=== PATIENT | female | born 1990 | race Caucasian/White ===

== ENCOUNTER 2019-09-22 12:07 | Emergency (ER) | payer OTHER ==
[~2019-09-22] VITALS: Ht 160 cm; Wt 59.0 kg
[~2019-09-22 12:07] MED LIST: DIVA500T1 PO; LURA40TA PO
[2019-09-22 12:16] VITALS: BP 108/71
[2019-09-22] MEDS ORDERED: ONDANSETRON 4 MG ODT PO ONE (12:45)
== END 2019-09-22 13:47 | disposition left against medical advice (07) ==
LOC: MED 12:07
DX: T43.644A Poisoning by ecstasy, undetermined, initial encounter (principal); F20.9 Schizophrenia, unspecified; F17.200 Nicotine dependence, unspecified, uncomplicated; Z79.899 Other long term (current) drug therapy; Y92.89 Other specified places as the place of occurrence of the external cause
CPT/HCPCS: 81002; 81025; 99283; Q0162

== ENCOUNTER 2020-03-02 15:55 | Emergency (ER) | payer OTHER ==
[~2020-03-02] VITALS: Ht 160 cm; Wt 59.0 kg
[2020-03-02 16:05] VITALS: BP 146/81
[2020-03-02] MEDS ORDERED: BUPRENORPHINE 0.3 MG/ML VIAL IM ONE (16:05)
[2020-03-02] MEDS ORDERED: ONDANSETRON 4 MG ODT PO ONE (16:05)
--- NOTE | 2020-03-02 16:20 | NUR ---
30 YEAR OLD FEMALE COMPLAINS OF WANTING HELP WITH DETOXIFICATION FROM OPIOID ADDICTION. PT DENIES NAUSEA, VOMITTING, HEADACHE, OR CHEST PAIN. PT AOX4, BREATHING EVEN AND UNLABORED, SKIN WARM AND DRY. BED IN LOWEST POSITION, LOCKED, BED RAIL UPX1. PMH - SCHIZOPHRENIA ALLERGIES - NKA
[2020-03-02 16:35] VITALS: BP 146/81
--- NOTE | 2020-03-02 16:35 | NUR ---
Patient discharged with v/s stable. Written and verbal after care instructions about heroin abuse and withdrawal given and explained. Patient alert, oriented and verbalized understanding of instructions. Ambulatory with steady gait. All questions addressed prior to discharge. ID band removed. Patient advised to follow up with PMD. Rx of suboxone given. Patient educated on indication of medication including possible reaction and side effects. Opportunity to ask questions provided and answered. Pt states she wants to go home, not wait.
== END 2020-03-02 16:35 | disposition home or self-care (01) ==
LOC: MED 15:55
DX: F11.23 Opioid dependence with withdrawal (principal); Z79.899 Other long term (current) drug therapy
CPT/HCPCS: 96372; 99283; J0592; Q0162

== ENCOUNTER 2020-03-29 12:30 | Emergency (ER) | payer OTHER ==
[~2020-03-29] VITALS: Ht 170.2 cm; Wt 49.9 kg
[2020-03-29 12:35] VITALS: BP 110/80
--- NOTE | 2020-03-29 12:39 | NUR ---
30 y/o female biba from the street c/o being hungry x 3 days. Pt states she has not eaten in 3 days.Denies n/v/d. Awake and alert. VSS
--- NOTE | 2020-03-29 12:54 | NUR ---
Pt given packet of food, seating upright eating food at this time
--- NOTE | 2020-03-29 12:59 | NUR ---
Dr. Mason is evaluating the patient at bedside.
[2020-03-29 13:19] VITALS: BP 110/80
--- NOTE | 2020-03-29 13:20 | NUR ---
Patient discharged with v/s stable. Written and verbal after care instructions given and explained. Patient verbalized understanding. Ambulatory with steady gait. All questions addressed prior to discharge. Advised to follow up with PMD. Pt given 2 packets of food upon discharge.
== END 2020-03-29 13:20 | disposition home or self-care (01) ==
LOC: MED 12:30
DX: T73.0XXA Starvation, initial encounter (principal); F19.10 Other psychoactive substance abuse, uncomplicated; F11.10 Opioid abuse, uncomplicated; Z59.0 Homelessness; Z79.899 Other long term (current) drug therapy
CPT/HCPCS: 99283

== ENCOUNTER 2020-07-14 09:19 | Emergency (ER) | payer OTHER ==
[~2020-07-14] VITALS: Ht 165.1 cm; Wt 54.4 kg
[2020-07-14 09:19] VITALS: BP 143/97
--- NOTE | 2020-07-14 09:20 | NUR ---
30 y/o F [place] with c/c of right calf pain. Per EMS, patient states she has been experiencing right calf pain x 1 week. Pt states she was walking today when the pain worsen. EMS states that patient may think she was bitten by an insect a week ago. Patient presents A&Ox4, ambulatory, and states she recently injected heroin into her leg. Pt presents with redness/swelling to right calf with scab located to posterior right calf. No drainage or bleeding noted. Pt states pain 10/10, sharp/constant, non-radiating. (+) CMS. Pt denies taking any medications prior to arrival. Pt admits to fentanyl use >48 hrs ago. Pt denies shortness of breath, chest pain, dizziness, fever/chills, cold-like symptoms, cough, abdominal pain. Pt placed onto monitoring engineer. Bed locked in lowest position, side rails x1, call light in reach. PMH/Meds: Denies; states uses street drugs NKA Sx: Denies
--- NOTE | 2020-07-14 09:22 | NUR ---
BIBA TAKEN TO BED 7
--- NOTE | 2020-07-14 09:35 | NUR ---
Dr. Pastrana is evaluating patient at bedside
[2020-07-14] MEDS ORDERED: NACL 0.9% 1,000 ML IV ONE ×2 (09:50→10:50)
[2020-07-14] MEDS ORDERED: VANCOMYCIN 1,000 MG in DEXTROSE 5% 250 ML IV ONE (09:50)
[2020-07-14] MEDS ORDERED: ACETAMINOPHEN 325 MG TAB PO ONE (09:50)
--- NOTE | 2020-07-14 09:55 | NUR ---
Patient disconnected self from surveillance monitor and requested to leave. Pt advised to stay for IV medications and interventions, advised of the risks of leaving by Dr. Pastrana in ER. Pt provided with Tylenol PO per pt request and walked out of ER after administration. Dr. Pastrana and charge nurse made aware of patient requests.
--- NOTE | 2020-07-14 09:55 | NUR ---
Pt eloped from facility.
== END 2020-07-14 09:55 | disposition left against medical advice (07) ==
LOC: MED 09:19
DX: R60.0 Localized edema (principal); M79.671 Pain in right foot; M79.602 Pain in left arm; F17.210 Nicotine dependence, cigarettes, uncomplicated
CPT/HCPCS: 99284

== ENCOUNTER 2021-10-18 23:00 | Emergency (ER) | payer OTHER ==
[~2021-10-18] VITALS: Ht 165.1 cm; Wt 59.0 kg
[~2021-10-18 23:00] MED LIST changes: -LURA40TA PO; +LURA40TA1 PO
[2021-10-18 23:10] VITALS: BP 123/74
--- NOTE | 2021-10-18 23:13 | NUR ---
TO LOBBY A/W BED AMBULATORY
--- NOTE | 2021-10-19 00:05 | NUR ---
1ST CALL IN LOBBY AND OUTSIDE WITH ON ANSWER.
--- NOTE | 2021-10-19 01:24 | NUR ---
PT AMBULATED TO BED #2
--- NOTE | 2021-10-19 01:27 | NUR ---
ER MD AT BEDSIDE EXAMINING PT
--- NOTE | 2021-10-19 01:27 | NUR ---
31 Y/O FEMALE BIBS, C/O BUG BITE ON NOSE. PT NOSE IS RED AND SWOLLEN WITH DRAINAGE. NO DIFFICULTY EATING OR BREATHING. PAIN TO TOUCH. A/OX4, GCS-15; AMBULATORY WITHOUT ASSISTANCE; DENIES FEVER, COUGH, CP, OR SOB. DENIES PMH/RX NO MEDS
[2021-10-19] MEDS ORDERED: SULF-59 PO (01:32)
[2021-10-19 01:44] VITALS: BP 123/74
--- NOTE | 2021-10-19 01:45 | NUR ---
Patient discharged with v/s stable. Written and verbal after care instructions given and explained. Patient alert, oriented and verbalized understanding of instructions. Ambulatory with steady gait. All questions addressed prior to discharge. ID band removed. Patient advised to follow up with PMD. Rx of BACTRIM DS TABS given. Patient educated on indication of medication including possible reaction and side effects. Opportunity to ask questions provided and answered. VSS, A/OX4, UNLABORED BREATHING, AMBULATORY, AND CALM DEMEANOR.
== END 2021-10-19 01:39 | disposition home or self-care (01) ==
LOC: MED 23:00
DX: J34.0 Abscess, furuncle and carbuncle of nose (principal); F17.210 Nicotine dependence, cigarettes, uncomplicated; Z79.2 Long term (current) use of antibiotics; Z79.899 Other long term (current) drug therapy
CPT/HCPCS: 99283